=== PATIENT | female | born 1960 | race Caucasian/White ===

== ENCOUNTER 2017-01-08 09:33 | Emergency (ER) | payer OTHER ==
[~2017-01-08] VITALS: Ht 160 cm; Wt 55.9 kg
[~2017-01-08 09:33] MED LIST: ACYC-65 PO
[2017-01-08 09:36] VITALS: TEMP 36.9; Ht 160 cm; Wt 55.9 kg
--- NOTE | 2017-01-08 10:55 | EMERGENCY ROOM VISIT NOTE ---
History Report prepared by Bart: Abdirashid Barajas Under the Supervision of: Dr. Ewa Cheema D.O. First contact with patient: 10:07 Chief Complaint: WOUND INFECTION Stated Complaint: SWELLING,ITCHING Nursing Triage Summary: Left elbow pain, swelling and redness - pt believes she was bitten by an insect. Also, redness right upper arm. History of Present Illness The patient is a 56 year old female who presents to the Emergency Room with complaints of persistent edema to her left elbow that began two days ago. She currently rates her discomfort as a 6/10 in severity. The patient states that was outside Sunday when she felt a possible insect bite to her left elbow. She states that she has noticed erythema and edema to her elbow. Last year, the patient states that she was treated for cellulitis that was caused by a bug bite. Per records, the patient was treated for ten days with Bactrim and Clindamycin. The patient notes that she had a tick bite to her right arm, that she just noticed this morning. She states that night she developed pain to her left eye to touch. The patient additionally associates edema and scleral injection. She states that she placed a hot rice pack to her left eye, which caused an area to open below her left eye. Source of History: patient Onset: two days ago Position: elbow (left) Symptom Intensity: 6/10 Quality: other (edema) Timing: other (persistent) Note: Associated Symptoms: tick bite to her right upper arm Review of Systems See HPI for pertinent positives & negatives. A total of 10 systems reviewed and were otherwise negative. Past Medical & Surgical Medical Problems: (1) No significant past medical history Surgical Problems: (1) History of oral surgery Family History FH: cancer FH: kidney disease Heart disease Social History Smoking Status: Current Every Day Smoker Alcohol Use: occasionally Marital Status: single Housing Status: lives with friends Occupation Status: employed Current/Historical Medications Scheduled Acyclovir (Zovirax), 200 MG PO BID Clindamycin HCl (Clindamycin HCl), 1 CAP PO TID Sulfamethoxazole-Trimethoprim (Bactrim Ds 800MG/160MG), 1 TAB PO BID Allergies Coded Allergies: Codeine (Unverified Allergy, Unknown, not sure, 02/08/16) Penicillin V (Unverified Allergy, Unknown, tongue swelled up.. nausea, ) Physical Exam Vital Signs Date Time Temp Pulse Resp B/P Pulse Ox O2 Delivery O2 Flow Rate FiO2 01/08/17 11:15 89 16 135/86 97 01/08/17 09:36 36.9 97 16 143/89 96 Room Air Physical Exam HEENT: Head - normocephalic and atraumatic Pupils are equal, round, and reactive to light. Extraocular eye muscles are intact, and left scleral injection. Nose - moist nasal mucosa without discharge. Mouth - moist buccal mucosa. Oropharynx is nonerythematous and there is no tonsillar exudate or edema noted. Neck: Supple; no JVD, nuchal rigidity, cervical lymphadenopathy. Heart: Regular rate and rhythm. There is a normal S1 and S2 with no murmurs, clicks, or gallops appreciated. Lungs: Clear to auscultation bilaterally with no wheezes, rales, or rhonchi. Abdomen: Soft, completely nontender, nondistended, with good bowel sounds. There are no palpable pulsatile masses or hepatosplenomegaly. There is no guarding, rigidity, or rebound noted. Extremities: No evidence of cyanosis, clubbing, or edema. There are easily palpable peripheral pulses. Skin: Erythema and edema to the left elbow and proximal left forearm. There is a small scabbed over area in the middle of this area of cellulitis. Insect bite with surrounding erythema to the right upper arm. Warm and dry with good turgor. Medical Decision & Procedures Medications Administered Medications (Trade) Dose Ordered Sig/Jaida Route Start Time Stop Time Status Last Admin Dose Admin Doxycycline Hyclate (Vibramycin Cap) 200 mg ONE ONCE PO 01/08/17 11:00 01/08/17 11:01 DC 01/08/17 11:00 200 MG Procedure The patient was treated with Vibramycin Cap 200 mg PO. ED Course 1025: Past medical records reviewed. The patient was evaluated in room C9. A complete history and physical exam was performed. I discussed all the exam findings with the patient and I discussed the treatment plan. She verbalized complete understanding and agreement. The patient is ready to go home once she receives her antibiotics. 1100: Ordered Vibramycin Cap 200 mg PO. Medical Decision The patient is a 56 year old female who presents to the ED with left elbow edema. Differential diagnosis includes tick bite, cellulitis, infected insect bite, skin abscess. The patient has 2 areas of concern on her upper extremity. The right arm appears to have been a possible tick bite with some surrounding erythema. The patient will receive a one-time dose of doxycycline here in the emergency department. As for the left forearm/elbow area, this appears to be consistent with cellulitis. There is no skin abscess or concerns for a septic joint. 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 I will start her on antibiotics. I outlined the area of erythema. She was given very specific instructions to return if she had worsening symptoms. Impression Primary Impression: Left arm cellulitis Scribe Attestation The scribe's documentation has been prepared under my direction and personally reviewed by me in its entirety. I confirm that the note above accurately reflects all work, treatment, procedures, and medical decision making performed by me. Departure Information Dispostion Home / Self-Care Prescriptions Clindamycin HCl (Clindamycin HCl) 300 Mg Cap 1 CAP PO TID, #30 CAP Prov: Ewa Cheema D.O. 01/08/17 Sulfamethoxazole-Trimethoprim (Bactrim Ds 800MG/160MG) 1 Tab Tab 1 TAB PO BID, #20 TAB Prov: Ewa Cheema D.O. 01/08/17 Referrals [facility] (PCP) Forms HOME CARE DOCUMENTATION FORM, IMPORTANT VISIT INFORMATION, WORK / SCHOOL INSTRUCTIONS Patient Instructions Cellulitis - [facility], [facility] Additional Instructions Rest the left arm. Return to the ER if you are not improving or symptoms are worsening. Bactrim - twice a day for 10 days Clindamycin - 1 tab. three times a day
[2017-01-08] MEDS ORDERED: DOXYCYCLINE HYCLATE 100 MG CAP PO ONE (11:00)
[2017-01-08] MEDS ORDERED: CLC/300 PO (11:04)
[2017-01-08] MEDS ORDERED: SULF800T23 PO (11:04)
[2017-01-08 11:15] VITALS: BP 135/86; PULSE 89; O2SAT 97
== END 2017-01-08 11:17 | disposition home or self-care (01) ==
LOC: C.EDB 09:34 → C.EDC 11:17
DX: L03.114 Cellulitis of left upper limb (principal); F17.200 Nicotine dependence, unspecified, uncomplicated; Z88.0 Allergy status to penicillin; Z88.6 Allergy status to analgesic agent; Z80.9 Family history of malignant neoplasm, unspecified; Z84.1 Family history of disorders of kidney and ureter; Z82.49 Family history of ischemic heart disease and other diseases of the circulatory system